=== PATIENT | female | born 1970 | race Caucasian/White ===

== ENCOUNTER 2020-07-24 09:08 | Emergency (ER) | payer SELFPAY ==
[~2020-07-24] VITALS: Ht 165.1 cm; Wt 112.9 kg
[2020-07-24] MEDS ORDERED: KETOROLAC TROMETHAMINE 60 MG/2 ML VIAL IM ONE (09:15)
[2020-07-24] MEDS ORDERED: HYDROcodone/ACETAMIN 10-325 MG TAB PO ONE (09:15)
[2020-07-24 09:16] VITALS: BP_SYST 104
[2020-07-24] MEDS ORDERED: DIAZEPAM 5 MG TABLET (VALIUM) PO ONE (09:30)
[2020-07-24 11:42] VITALS: BP_SYST 104
== END 2020-07-24 11:42 | disposition home or self-care (01) ==
LOC: SED 09:08
DX: M54.42 Lumbago with sciatica, left side (principal); Z88.8 Allergy status to other drugs, medicaments and biological substances; Z88.5 Allergy status to narcotic agent
CPT/HCPCS: 72131; 81002; 81025; 96372; 99284; J1885

== ENCOUNTER 2022-01-18 19:56 | Emergency (ER) | payer SELFPAY ==
[~2022-01-18] VITALS: Ht 162.6 cm; Wt 86.2 kg
[2022-01-18 20:00] VITALS: BP_SYST 147
--- NOTE | 2022-01-18 20:00 | NUR ---
Patient triaged and placed in the tent. VSS and patient appears in no acute distress at this time. Accompanied by daugther , awaiting available bed, and MD notified of need for MSE.
--- NOTE | 2022-01-18 22:00 | NUR ---
ER examining patient in the tent.
[2022-01-18 22:25] VITALS: BP_SYST 142
--- NOTE | 2022-01-18 22:25 | NUR ---
Patient given written and verbal discharge instructions and verbalizes understanding. ER MD discussed with patient the results and treatment provided. Patient in stable condition. ID arm band removed. no Rx of given. Patient educated on pain management and to follow up with PMD. Pain Scale 4/10. Opportunity for questions provided and answered. Medication side effect fact sheet provided.
== END 2022-01-18 22:25 | disposition home or self-care (01) ==
LOC: SED 19:56
DX: U07.1 COVID-19 (principal); Z88.8 Allergy status to other drugs, medicaments and biological substances; Z88.5 Allergy status to narcotic agent; Z88.1 Allergy status to other antibiotic agents
CPT/HCPCS: 99283; U0003

== ENCOUNTER 2022-10-26 02:48 | Emergency (ER) | payer SELFPAY ==
[~2022-10-26] VITALS: Ht 165.1 cm; Wt 88.5 kg
[2022-10-26 03:17] VITALS: BP_SYST 145
--- NOTE | 2022-10-26 03:20 | NUR ---
Placed in room 08 . Placed on pie dough roller, blood pressure machine and pulse oximeter. To gown for exam. Side rails up. Report given to THAD MURRAY PATIENT BROUGHT IN DX'D COVID POSITIVE ON 10/22/22 TODAY COMPLAINING OF NASAL AND SINUS CONGESTION AND HAVING DIFFICULTY BREATHING. O2 SATURATION IS 97% ON RA. SPEAKING FULL SENTENCES. NO ACUTE DISTRESS NOTED.
--- NOTE | 2022-10-26 03:26 | NUR ---
MD AT BEDSIDE WITH PATIENT FOR EVALUATION.
--- NOTE | 2022-10-26 03:30 | NUR ---
ASSESSED, PATIENT STABLE, DENIES PAIN , WILL CONTINUE TO MONITOR.
[2022-10-26] MEDS ORDERED: ALBUTEROL SULFATE 0.083% 2.5 MG/3 ML VIAL.NEB INH ONE (03:45)
[2022-10-26] MEDS ORDERED: PSEU120T56 PO (04:17)
[2022-10-26] MEDS ORDERED: BENZ150C4 PO (04:17)
[2022-10-26] MEDS ORDERED: ALBMDI INH (04:17)
[2022-10-26] MEDS ORDERED: INHA1EAC9 MC (04:17)
--- NOTE | 2022-10-26 04:20 | NUR ---
PATIENT RESTING QUITELY IN BED , WILL CONTINUE TO MONITOR
[2022-10-26 05:30] VITALS: BP_SYST 145
--- NOTE | 2022-10-26 05:30 | NUR ---
Patient given written and verbal discharge instructions and verbalizes understanding. ER Dr. Galeano discussed with patient the results and treatment provided. Patient in stable condition. ID arm band removed. Rx of benzonatate, albuterol, aerochamber z-stat, and sudafed given. Patient educated on pain management and to follow up with PMD. Pain Scale 0. Opportunity for questions provided and answered. Medication side effect fact sheet provided.
--- NOTE | 2022-10-26 05:30 | NUR ---
Patient given written and verbal discharge instructions and verbalizes understanding. ER MD discussed with patient the results and treatment provided. Patient in stable condition. ID arm band removed. Rx of given. Patient educated on pain management and to follow up with PMD. Pain Scale 0. Opportunity for questions provided and answered. Medication side effect fact sheet provided.
== END 2022-10-26 05:30 | disposition home or self-care (01) ==
LOC: SED 02:48
DX: U07.1 COVID-19 (principal); R06.02 Shortness of breath; J20.8 Acute bronchitis due to other specified organisms; Z88.1 Allergy status to other antibiotic agents; Z88.5 Allergy status to narcotic agent; Z79.899 Other long term (current) drug therapy
CPT/HCPCS: 71045; 94640; 99283; J7613